=== PATIENT | male | born 1985 ===

== ENCOUNTER 2016-12-10 15:14 | Emergency (ER) | payer MEDICAID ==
[~2016-12-10] VITALS: Ht 172.7 cm; Wt 68.0 kg
[2016-12-10 15:31] VITALS: BP 156/50
== END 2016-12-10 17:45 | disposition left against medical advice (07) ==
LOC: ED 15:14
DX: S50.811A Abrasion of right forearm, initial encounter (principal); S60.811A Abrasion of right wrist, initial encounter; S80.812A Abrasion, left lower leg, initial encounter; S80.811A Abrasion, right lower leg, initial encounter; V23.4XXA Motorcycle driver injured in collision with car, pick-up truck or van in traffic accident, initial encounter; Y93.89 Activity, other specified; Y99.8 Other external cause status; Y92.89 Other specified places as the place of occurrence of the external cause